=== PATIENT | female | born 1990 | race Caucasian/White ===

== ENCOUNTER 2020-03-05 13:10 | Emergency (ER) | payer MEDICAID ==
[~2020-03-05] VITALS: Ht 167.6 cm; Wt 81.6 kg
[2020-03-05 13:16] VITALS: BP 135/75; Ht 167.6 cm; Wt 81.6 kg
== END 2020-03-05 14:10 | disposition home or self-care (01) ==
LOC: ED 13:10
DX: N39.0 Urinary tract infection, site not specified (principal); J45.909 Unspecified asthma, uncomplicated; Z90.49 Acquired absence of other specified parts of digestive tract